=== PATIENT | male | born 1985 | race Hispanic/Latino ===

== ENCOUNTER 2024-08-21 03:22 | Emergency (ER) | payer OTHER ==
[2024-08-21] MEDS ORDERED: Boostrix 0.5 ML (Tdap) VIAL (>/=7 yrs of age) ONE (04:19)
== END 2024-08-21 04:45 | disposition home or self-care (01) ==
LOC: BURERS 03:22
DX: S51.851A Open bite of right forearm, initial encounter (principal); I10 Essential (primary) hypertension; E10.9 Type 1 diabetes mellitus without complications; E78.5 Hyperlipidemia, unspecified; Y04.1XXA Assault by human bite, initial encounter; Z79.84 Long term (current) use of oral hypoglycemic drugs; Z79.899 Other long term (current) drug therapy
CPT/HCPCS: 90471; 90715